=== PATIENT | female | born 1945 | race Hispanic/Latino ===

== ENCOUNTER 2017-06-07 12:51 | Outpatient (CLI) | payer MEDICARE, OTHER ==
--- NOTE | 2017-06-07 14:18 | Mammography Report ---
BONE DEXA:06/07/17 12:51:00 CLINICAL: Postmenopausal. COMPARISON: 11/08/15, 09/11/13 and 02/09/09 TECHNIQUE: Two site bone DEXA performed on an Hologic scanner. FINDINGS: The average BMD of the lumbar spine L1-L4 is 0.776g/cm squared with a T-score of -2.5 and a Z-score of -0.2. This compares to 0.795g/cm squared on the last exam and represents a -2.4% change from the previous study and a -4.4% change from baseline. The average BMD of the left hip is 0.704g/cm squared with a T-score of -1.9 and a Z-score of -0.3. This compares to 0.701g/cm squared on the last exam and represents a +0.4% change from the previous -1.1% change from baseline. IMPRESSION: 1. WHO classification: Osteoporosis with high fracture risk based on spine measurements. A modest decline in spine BMD compared to the last exam. 2. WHO classification: Osteopenia with increased fracture risk based on left hip measurements. A slight improvement in left hip BMD compared to the last exam. RECOMMENDATION: Clinical correlation and routine screening. DEFINITIONS: BMD = Bone Mineral Density T-score = BMD related to mean peak bone mass of young adult (mean expressed in Standard Deviation) Z-score = Age matched BMD expressed in SD World Health Organization (WHO) Diagnostic Criteria Normal T-score > -1 SD Osteopenia T-score between -1 and -2.4 SD Osteoporosis T-score -2.5 SD or below NOTE: BMD is not the only risk factor for fracture; also consider factors such as the patient's age, risk of falling, previous osteoporotic fracture, family history of osteoporotic fractures, current smoker, and low body weight. Z-scores are not calculated if >80 years of age.
== END 2017-06-07 12:52 | disposition home or self-care (01) ==
LOC: SPVWC 12:51
PROVIDERS: ATTEND Internal Medicine
DX: M81.0 Age-related osteoporosis without current pathological fracture (principal); M85.88 Other specified disorders of bone density and structure, other site; Z78.0 Asymptomatic menopausal state
CPT/HCPCS: 77080

== ENCOUNTER 2019-07-23 11:27 | Outpatient (CLI) | payer MEDICARE ==
--- NOTE | 2019-07-28 15:32 | Mammography Report ---
BONE DEXA CLINICAL: Postmenopausal. COMPARISON: 06/07/2017, 11/08/2015 and 09/11/2013 TECHNIQUE: 2 site bone DEXA performed on an Hologic scanner. FINDINGS: The average BMD of the lumbar spine L1-L4 is 0.843g/cm squared with a T score of -1.9 and a Z score o f +0.5. This compares to 0.776g/cm squared on the last exam and represents a +8.5 % change from the l ast study and a +4.4% change from baseline. The average BMD of the left hip is 0.710 g/cm squared with a T score of -1.9and a Z score of -0.1. Th is compares to 0.704 g/cm squared on the last exam and represents a +0.8 % change from the last study and a -0.3% change from baseline. IMPRESSION: 1. WHO classification: Osteopenia with increased fracture risk based on spine measurements. 2. WHO classification Osteopenia with increased fracture risk based on left hip measurements. 3. A moderate improvement in spine BMD and minimal improvement in left hip BMD compared to the last e xam. RECOMMENDATION: Clinical correlation and routine screening. Definitions: BMD equal bone mineral density T score = BMD related to peak bone mass of young adult (Stewart expressed an standard deviation) Z score = age-matched BMD expressed in SD World health organization (WHO) diagnostic criteria Normal T score greater than equal to 1 standard deviation Osteopenia T score between -1 and -2.4 standard deviation Osteoporosis T score -2.5 standard deviation or below. Note: BMD is not the only risk factor for fracture; also consider factors such as the patient's age, risk of falling, previous osteoporotic fracture, family history of osteoporotic fractures, current sm oker and low body weight. Z scores are not calculated if greater than 80 years of age. Signer Name: Chapito Chris MD Signed: 07/28/2019 3:28 PM Workstation Name: [id number]
== END 2019-07-23 11:28 | disposition home or self-care (01) ==
LOC: SPVWC 11:27
PROVIDERS: ATTEND Internal Medicine
DX: Z78.0 Asymptomatic menopausal state (principal)
CPT/HCPCS: 77080